=== PATIENT | female | born 1945 ===

== ENCOUNTER 2017-08-29 07:15 | Inpatient (IN) | payer OTHER ==
[~2017-08-29] VITALS: Ht 152.4 cm; Wt 70.3 kg
[2017-08-29] MEDS ORDERED: GABAPENTIN400 MG PO (08:34)
[2017-08-29] MEDS ORDERED: JANUMET XR 50-1 EAC1 PO (08:34)
[2017-08-29] MEDS ORDERED: ZOCOR40 MG PO (08:34)
[2017-08-29] MEDS ORDERED: GRALISE1 EACH PO (08:35)
[2017-08-29] MEDS ORDERED: AMARIL PO (08:35)
[2017-08-29] MEDS ORDERED: VASOTEC5 MG PO (08:36)
[2017-08-29] MEDS ORDERED: ZANTAC300 MG PO (08:36)
[2017-08-29] MEDS ORDERED: FOSAMAX70 MG PO (08:37)
[2017-08-29] MEDS ORDERED: SYNTHROID50 MCG PO (08:38)
[2017-08-29] MEDS ORDERED: CATAFLAN PO (08:38)
[2017-08-29] MEDS ORDERED: RELAFEN PO (08:39)
[2017-08-29] MEDS ORDERED: [UNRECOGNIZED DRUG - REMARK] (08:40)
[2017-08-29] MEDS ORDERED: SOLARAZE100 GM (08:40)
[2017-08-29] MEDS ORDERED: CANAVIS SL (08:41)
[2017-08-29] MEDS ORDERED: ADULT ASPIRIN81 MG PO (08:41)
[2017-09-07] MEDS ORDERED: DUI500 PO (16:20)
[2017-09-07] MEDS ORDERED: PERCOCET 5-3251 EACH PO (16:20)
[2017-09-07] MEDS ORDERED: XARELTO10 MG PO (16:20)
== END 2017-09-07 21:54 | DRG 470 ==
LOC: SURG 09-05 05:50 → O/R 09-05 05:50 → SURG 09-05 07:15
PROVIDERS: Orthopaedic Surgery
PROC: 0QND0ZZ Release Right Patella, Open Approach (ICD-10-PCS; 2017-09-05)
PROC: 0SRC0J9 Replacement of Right Knee Joint with Synthetic Substitute, Cemented, Open Approach (ICD-10-PCS; principal; 2017-09-05 13:30)
DX: M17.11 Unilateral primary osteoarthritis, right knee (principal); D62 Acute posthemorrhagic anemia; M80.00XA Age-related osteoporosis with current pathological fracture, unspecified site, initial encounter for fracture; M22.11 Recurrent subluxation of patella, right knee; E66.09 Other obesity due to excess calories; E03.8 Other specified hypothyroidism; E11.9 Type 2 diabetes mellitus without complications; I10 Essential (primary) hypertension